=== PATIENT | female | born 1955 | race Caucasian/White ===

== ENCOUNTER → 2018-03-18 16:41 | Outpatient (CLI) | payer MEDICARE | END | disposition home or self-care (01) | LOC: D.LABREF 16:41 | DX: M16.11 Unilateral primary osteoarthritis, right hip (principal); Z11.8 Encounter for screening for other infectious and parasitic diseases ==

== ENCOUNTER 2018-04-04 16:02 | Inpatient (IN) | payer MEDICARE ==
[~2018-04-04] VITALS: Ht 160 cm; Wt 59.1 kg
[2018-04-16] MEDS ORDERED: ASPIRIN EC81 M1 PO (10:53)
[2018-04-16] MEDS ORDERED: SEROQUEL25 MG PO (10:53)
[2018-04-16] MEDS ORDERED: CALCIUM 600 +1 EAC3 PO (10:54)
[2018-04-16] MEDS ORDERED: FISH OIL 1,0001 CA1 PO (10:54)
[2018-04-16] MEDS ORDERED: MOBIC7.5 MG PO (10:54)
[2018-04-16] MEDS ORDERED: PROZAC20 MG PO (10:55)
[2018-04-16] MEDS ORDERED: METAMUCIL PO (10:56)
[2018-04-16] MEDS ORDERED: [UNRECOGNIZED DRUG - OTHER] PO (10:56)
[2018-04-16] MEDS ORDERED: LIPITOR40 MG PO (10:57)
[2018-04-16] MEDS ORDERED: OMEPRAZOLE20 M1 PO (10:57)
[2018-04-16] MEDS ORDERED: HYDROCHLOROTHIA25 MG PO (10:57)
[2018-04-16] MEDS ORDERED: ADVAIR HFA [SP]12 GM INH (10:58)
[2018-04-16] MEDS ORDERED: XOPENEX HFA15 GM INH (10:59)
[2018-04-16 11:32] LABS: BASOPHILS 0.8 % (0-2); EOSINOPHILS 5.5 % (0-7); HEMATOCRIT 39.8 % (36.0-48.0); HEMOGLOBIN 13.2 g/dL (12-16); IMMATURE GRANULOCYTES 0.2 % (0-5); LYMPHOCYTES 25.1 % (15-50); MCH 28.6 pg (26.0-34.0); MCHC 33.2 g/dL (31.0-37.0); MCV 86.3 fL (80.0-100.0); MEAN PLATELET VOLUME 10.6 fL (7.4-10.4); MONOCYTES 7.7 % (2-11); NEUTROPHILS 60.7 % (40-80); PLATELET COUNT 270 10x3/uL (130-400); RBC 4.61 10x6/uL (4.00-5.40); WBC 5.1 10x3/uL (4.8-10.8)
[2018-04-16 11:37] LABS: APPEARANCE CLEAR (CLEAR); BILIRUBIN NEGATIVE (NEGATIVE); COLOR YELLOW (YELLOW); GLUCOSE NEGATIVE (NEGATIVE); KETONE NEGATIVE (NEGATIVE); NITRITE NEGATIVE (NEGATIVE); PROTEIN NEGATIVE (NEGATIVE); SPECIFIC GRAVITY 1.015 (1.005-1.020); UROBILINOGEN NORMAL (NORMAL)
[2018-04-16 11:42] LABS: APTT 28.6 SECONDS (22.8-39.4); INR 0.96 (0.85-1.17); PROTIME 12.3 SECONDS (11.6-15.0)
[2018-04-16 11:44] LABS: CALC OSMOLALITY 284 mosm/kg (275-300); CARBON DIOXIDE 30.8 mmol/L (21.0-32.0); CHLORIDE - SERUM 101 mmol/L (98-107); CREATININE - SERUM 0.8 mg/dL (0.6-1.3); GLUCOSE 99 mg/dL (74-106); POTASSIUM - SERUM 3.7 mmol/L (3.5-5.1); SODIUM 142 mmol/L (136-145); UREA NITROGEN 19 mg/dL (7-18); eGFR NON AFRICAN AMERICAN 77 mL/min (90-120)
[2018-04-21 07:15] VITALS: BP 120/69; BMI 22.7
--- NOTE | 2018-04-21 08:38 | NUR ---
PLASMA BLADE SET TO 6/8 BOVIE PAD LEFT THIGH [id number] EXP 11/26/2019 RIGHT HIP PREPPED FROM HIP TO TOES CIRCUMFERENTIALLY. CLEANED WITH HIBICLENS PRIOR TO CHLORAPREP.
[2018-04-21 10:38] VITALS: BP 124/72
[2018-04-21 11:39] VITALS: BP 106/61; BMI 23.0
--- NOTE | 2018-04-21 12:36 | NUR ---
PT CONCERNED WITH DVTS DUE TO PT HAS HAD 3 IN PAST, APPLIED SCD'S TO BOTH LEGS, ADMINISTERED PRN PAIN MEDICATION PT STATED STARTED TO FEEL MORE THAN SORE, CONTINUE WITH PLAN OF CARE
--- NOTE | 2018-04-21 15:25 | OP ---
PATIENT NAME: ROCHELLE BHAKTA MEDICAL RECORD: [id number] :57 LOCATION:D.MS [id number] ADMISSION DATE:04/21/18 SURGEON: RADHA SALINAS MD DATE OF OPERATION: 04/21/2018 PREOPERATIVE DIAGNOSIS: Severe arthritis of the right hip. POSTOPERATIVE DIAGNOSIS: Severe arthritis of the right hip. PROCEDURE: Right total hip arthroplasty. SURGEON: Radha Salinas MD CHEMIST INTERN: SANJEEV Chacon ANESTHESIA: General. INTRAOPERATIVE COMPLICATIONS: None. SUMMARY OF PATHOLOGIC FINDINGS: The patient had severe osteoarthritis of the right hip. IMPLANTS USED: Marlon Trident 3 polyethylene insert 36 mm alpha code E, [place] Trident 2, Tritanium cluster hole acetabular shell size 54 alpha code E, Biolox ceramic V40 femoral head with a standard length and an Accolade II 132 neck angle size 4. ESTIMATED BLOOD LOSS: 100 cc. OPERATIVE SUMMARY IN DETAIL: After obtaining the appropriate preoperative orthopedic surgery consent as well as anesthetic consultation, evaluation, and clearance, the patient was brought to the operating room and placed on the operating table in supine position. After general laryngeal mask was administered, the patient was placed in left lateral decubitus position. All pressure points well padded to include down leg peroneal pad as well as axillary roll. The patient was held firmly to the operating table using the vacuum pack suction system. Right lower extremity and hip were then prepped and draped in routine sterile fashion. Curvilinear incision made over the greater trochanter, taken down over the IT band, which was split in line with fibers of the IT band to reveal gluteus medius and minimus attachments. These were reflected anteriorly. The capsule was split in a T-type fashion and saved for later reapproximation. The hip was dislocated. Femoral neck cut was made using the femoral neck cutting guide. Acetabulum was then exposed. Circumferential labrectomy and osteophyte removal was then followed by reaming to a size 54. A line to line reaming was used in this patient with soft bone. Size 54 Tritanium cup was then put into place with excellent fit and fill. Polyethylene was put into place and checked with the Monie. Having completed this, attention was turned to the proximal femur. Serial and sequential reaming and broaching were done for a size 4 Accolade II. This was tamped into place. Trial was undertaken. It was felt that standard was the best for leg length reapproximation, size 2 was then tamped by a size standard, Biolox head was tamped into place on the Vidal taper. This was then reduced, taken through range of motion and found to be stable in all planes. Intraoperative radiographs were taken at this point showed good congregation of the patient's length and good fit and fill of all the components. At this point, copious OPERATIVE REPORT [id number] ROCHELLE BHAKTA irrigation was followed by reapproximation of the hip capsule as well as the gluteus medius and minimus back to the greater trochanter with #5 Ethibond. The hip was then filled with 1 gram of vancomycin, 1 gram of tobramycin. IT band was then closed with #2 Ethibond followed by #1 Vicryl, 2-0 Vicryl, and skin tania. Please note, the Manpreet Walker did the IT band and superficial closure. Final closure was achieved with skin tania. Sterile dressings were applied. The patient was awakened, taken to recovery room in stable condition. All final needle and sponge counts were correct. TRANSINT:[id number] Voice Confirmation ID: [id number] DOCUMENT ID: [id number] BRAD LEE, RADHA ALMAZAN at 1525 CC: [id number] DICTATION DATE: 04/21/18910 INTERVENTIONAL TECH: 04/21/1844 ADM IN [facility] [address] [place] [address]
--- NOTE | 2018-04-21 15:34 | NUR ---
ASSISTED PT ONTO BEDPAN, PT INQUIRED ON HOME MEDICAL EQUIPMENT, SPOKE TO CASE MANAGEMENT AND WAS ADVISED WILL SEE PT IN AM AND FOR HER NOT TO WORRY THAT SHE WILL HAVE SUPPLIES BEFORE DC. CONTINUE WITH PLAN OF CARE
--- NOTE | 2018-04-21 17:05 | NUR ---
PT LYING IN BED, GAVE NEW ICE PACK, STATED NO PAIN AT THIS TIME, REMINDED PT TO LET US KNOW OF PAIN BEFORE GETS TOO BAD, FAMILY AT BEDSIDE, CONTINUE WITH PLAN OF CARE
[2018-04-21 17:09] VITALS: BP 104/47
[2018-04-21 21:24] VITALS: BP 108/48
--- NOTE | 2018-04-21 21:30 | NUR ---
SUPINE IN BED, A&O X 4. STATES PAIN IS ADEQUATELY CONTROLLED. DRESSING TO RIGHT HIP- CLEAN/DRY/INTACT. SCDs IN USE, WILL CONTINUE TO MONITOR.
--- NOTE | 2018-04-22 04:13 | NUR ---
RESTING IN BED WITH NO S/S OF DISTRESS NO NEEDS NOTED OR STATED CALL LIGHT IN REACH.
[2018-04-22 05:03] VITALS: BP 109/55
[2018-04-22 06:48] LABS: HEMATOCRIT 30.3 % (36.0-48.0); HEMOGLOBIN 9.8 g/dL (12-16); MCH 27.8 pg (26.0-34.0); MCHC 32.3 g/dL (31.0-37.0); MCV 86.1 fL (80.0-100.0); MEAN PLATELET VOLUME 10.6 fL (7.4-10.4); RBC 3.52 10x6/uL (4.00-5.40)
[2018-04-22 08:51] VITALS: BP 108/49
--- NOTE | 2018-04-22 09:30 | NUR ---
PT RESTING IN BED. ALERT AND ORIENTED. NO ACUTE DISTRESS NOTED. REPORTS PAIN 2/10 AT THIS TIME. IV TO LEFT HAND WITH 1/2 NS @ 100ML/HR INFUSING VIA PUMP, SALINE LOC PER MD ORDERS. DRESSING TO RIGHT HIP C/D/I. SCD'S ON BILATERALLY. DENIES FURTHER NEEDS AT THIS TIME. CL WITHIN REACH. ENCOURAGED TO CALL WITH NEEDS. CONTINUE POC
--- NOTE | 2018-04-22 11:18 | NUR ---
PT RESTING IN BED WATCHING TV. REPORTS PAIN 3/10 AT THIS TIME. DENIES NEED FOR PAIN MED AT THIS TIME. ENCOURAGED TO CALL WITH NEEDS. CL WITHIN REACH. CONTINUE TO MONITOR.
--- NOTE | 2018-04-22 12:47 | NUR ---
PT REPORTS PAIN 5/10 AT THIS TIME TO RIGHT HIP. PAIN MED ADMINISTERED PER MD ORDERS. WILL CONTINUE TO MONITOR.
[2018-04-22 13:39] VITALS: BP 138/48
[2018-04-22 15:45] VITALS: BP 117/53
[2018-04-22 17:18] VITALS: Ht 160 cm; Wt 59.1 kg
[2018-04-22 21:02] VITALS: BP 122/59
[2018-04-23 01:33] VITALS: BP 134/60
[2018-04-23 05:35] LABS: HEMATOCRIT 31.2 % (36.0-48.0); HEMOGLOBIN 9.9 g/dL (12-16); MCH 27.6 pg (26.0-34.0); MCHC 31.7 g/dL (31.0-37.0); MCV 86.9 fL (80.0-100.0); MEAN PLATELET VOLUME 10.6 fL (7.4-10.4); RBC 3.59 10x6/uL (4.00-5.40); RDW 13.2 % (11.5-14.5)
[2018-04-23 06:05] VITALS: BP 124/50
--- NOTE | 2018-04-23 07:15 | NUR ---
REC'D IN WALKING ROUNDS AWAKE AND ALERT. RESP EVEN AND UNLABORED WITH NO DISTRESS NOTED. CAN EXPRESS NEEDS AND WANTS. NO C/O NOTED OR VOICED. ASSESSMENT COMPLETED. C/L IN REACH AT BEDSIDE.
[2018-04-23 08:17] VITALS: BP 133/64; BP 97/26
[2018-04-23] MEDS ORDERED: ELIQUIS2.5 MG PO (08:57)
[2018-04-23] MEDS ORDERED: PERCOCET 10-321 EAC1 PO (08:58)
--- NOTE | 2018-04-23 08:58 | MORECARE ---
CASE MANAGEMENT DISCHARGE SUMMARY PATIENT: ROCHELLE BHAKTA UNIT: [id number] ADM DATE: 04/21/18 AGE: 62 : 57 SEX: F ROOM/BED: D.2213 AUTHOR: ROBIN COLEMAN PHYSICIAN: REFERRING PHYSICIAN: RADHA SALINAS MD DATE OF SERVICE: 04/23/18 Discharge Plan Patient Name: ROCHELLE BHAKTA [facility] [facility] 1955 Planned Disposition: Home or Self Care Anticipated Discharge Date: Discharge Date: Expected LOS: Initial Reviewer: [email or web address] Initial Review Date: 04/21/2018 Generated: 04/23/18 9:58 am DCPIA - Discharge Planning Initial Assessment Updated by [email or web address]: Pam Cardona on 04/23/18 8:56 am * Is the patient Alert and Oriented? Yes * How many steps to enter\exit or inside your home? * PCP RAMOS * [facility] * Preadmission Environment Home with Family * ADLs Independent * Equipment Bedside Commode Walker * List name and contact numbers for known caregivers / representatives who currently or will assist patient after discharge: JILLIAN () [phone] * Verbal permission to speak to the caregivers and representatives has been obtained from the patient. N/A * Community resources currently utilized None * Additional services required to return to the preadmission environment? Yes * Can the patient safely return to the preadmission environment? Yes * Has this patient been hospitalized within the prior 30 days at any hospital? No Patient Name: ROCHELLE BHAKTA Page [phone] at 0858 All edits/amendments must be made on the electronic document DICTATION DATE: 04/23/18856 SPEECH COMMUNICATION INSTRUCTOR: SWATHI 04/23/18856 RPT#: [id number] DC DATE: STATUS: ADM IN [facility] [address] [place] [address] END OF REPORT
--- NOTE | 2018-04-23 09:05 | MORECARE ---
CASE MANAGEMENT DISCHARGE SUMMARY PATIENT: ROCHELLE BHAKTA UNIT: [id number] ADM DATE: 04/21/18 AGE: 62 : 57 SEX: F ROOM/BED: D.2213 AUTHOR: VIRGINIADOC PHYSICIAN: REFERRING PHYSICIAN: RADHA SALINAS MD DATE OF SERVICE: 04/23/18 Discharge Plan Patient Name: ROCHELLE BHAKTA Facility: [facility]:[place] : 1955 Planned Disposition: Home or Self Care Anticipated Discharge Date: Discharge Date: Expected LOS: Initial Reviewer: [email or web address] Initial Review Date: 04/21/2018 Generated: 04/23/18 10:05 am Comments DCP- Discharge Planning Updated by [email or web address]: Pam Cardona on 04/23/18 7:[address] Patient Name: ROCHELLE BHAKTA Admission Status: Elective Accout number: [id number] Admission Date: 04-21-2018 : 1955 Admission Diagnosis: Attending: RADHA SALINAS Current LOS: 2 Anticipated DC Date: Planned Disposition: Home or Self Care Primary Insurance: [employer] Discharge Planning Comments: CM met with patient to complete initial dc planning assessment. CM educated patient on the CM role and verbal consent given by patient to complete assessment. Patient lives in [place] with her . Where she is independent with her care and feels this is a safe discharge. CM discussed availability of home health, rehab services, and medical equipment. Patient plans to do OP PT in [place], I will make first appointment and she will make the rest. Patient has walker and a BSC. There are 3 steps to get to her home. CM will continue to follow and will assist as needed with dc plans/needs. Nurses Educator: Pam Cardona DCPIA - Discharge Planning Initial Assessment Updated by [email or web address]: Pam Cardona on 04/23/18 8:56 am * Is the patient Alert and Oriented? Yes * How many steps to enter\exit or inside your home? * PCP RAMOS * [facility] * Preadmission Environment Home with Family * ADLs Independent * Equipment Bedside Commode Walker * List name and contact numbers for known caregivers / representatives who currently or will assist patient after discharge: JILLIAN () [phone] * Verbal permission to speak to the caregivers and representatives has been obtained from the patient. N/A * Community resources currently utilized None * Additional services required to return to the preadmission environment? Yes * Can the patient safely return to the preadmission environment? Yes * Has this patient been hospitalized within the prior 30 days at any hospital? No Last DP export: 04/23/18 7:58 a Patient Name: ROCHELLE BHAKTA Page [phone] at 0905 All edits/amendments must be made on the electronic document DICTATION DATE: 04/23/18903 GAS WELL PUMPER: SWATHI 04/23/18903 RPT#: [id number] DC DATE: STATUS: ADM IN [facility] [address] [place] [address] END OF REPORT
--- NOTE | 2018-04-23 09:34 | MORECARE ---
CASE MANAGEMENT DISCHARGE SUMMARY PATIENT: ROCHELLE BHAKTA UNIT: [id number] ADM DATE: 04/21/18 AGE: 62 : 57 SEX: F ROOM/BED: D.2213 AUTHOR: VIRGINIA,DOC PHYSICIAN: REFERRING PHYSICIAN: RADHA SALINAS MD DATE OF SERVICE: 04/23/18 Discharge Plan Patient Name: ROCHELLE BHAKTA Facility: [facility]:[place] : 1955 Planned Disposition: Home or Self Care Anticipated Discharge Date: Discharge Date: Expected LOS: Initial Reviewer: [email or web address] Initial Review Date: 04/21/2018 Generated: 04/23/18 10:34 am Comments DCP- Discharge Planning Updated by [email or web address]: Pam Cardona on 04/23/18 8:[address] PATIENT SET UP WITH OP PT AT [facility] FOR Saturday04/24/18 AT 10:45 AM. I SPOKE WITH GEORGE AND FAXED ORDER. A COPY OF OP PT GIVEN TO PATIENT WITH HER DC PACKET. CM TO FOLLOW AND ASSIST WITH DC PLANNING NEEDED DCP- Discharge Planning Updated by [email or web address]: Pam Cardona on 04/23/18 7:[address] Patient Name: ROCHELLE BHAKTA Admission Status: Elective Accout number: [id number] Admission Date: 04-21-2018 : 1955 Admission Diagnosis: Attending: RADHA SALINAS Current LOS: 2 Anticipated DC Date: Planned Disposition: Home or Self Care Primary Insurance: [employer] Discharge Planning Comments: CM met with patient to complete initial dc planning assessment. CM educated patient on the CM role and verbal consent given by patient to complete assessment. Patient lives in [place] with her . Where she is independent with her care and feels this is a safe discharge. CM discussed availability of home health, rehab services, and medical equipment. Patient plans to do OP PT in [place], I will make first appointment and she will make the rest. Patient has walker and a BSC. There are 3 steps to get to her home. CM will continue to follow and will assist as needed with dc plans/needs. Barrel Waterer: Pam Cardona DCPIA - Discharge Planning Initial Assessment Updated by [email or web address]: Pam Cardona on 04/23/18 8:56 am * Is the patient Alert and Oriented? Yes * How many steps to enter\exit or inside your home? * PCP RAMOS * [facility] * Preadmission Environment Home with Family * ADLs Independent * Equipment Bedside Commode Walker * List name and contact numbers for known caregivers / representatives who currently or will assist patient after discharge: JILLIAN () [phone] * Verbal permission to speak to the caregivers and representatives has been obtained from the patient. N/A * Community resources currently utilized None * Additional services required to return to the preadmission environment? Yes * Can the patient safely return to the preadmission environment? Yes * Has this patient been hospitalized within the prior 30 days at any hospital? No Last DP export: 04/23/18 8:05 a Patient Name: ROCHELLE BHAKTA Page [phone] at 0934 All edits/amendments must be made on the electronic document DICTATION DATE: 04/23/18933 OUTDOOR FITNESS TRAINER: SWATHI 04/23/18933 RPT#: [id number] DC DATE: STATUS: ADM IN [facility] [address] [place] [address] END OF REPORT
[2018-04-23 12:39] VITALS: BP 139/59
--- NOTE | 2018-04-23 13:01 | NUR ---
WAS TO BE DC HOME ON TODAY BUT UPON DEPARTURE PT HAD A VAGAL RESPONSE AND DISCHARGE WAS DISCONTINUE. C/L IN REACH AT BEDSIDE.
[2018-04-23 14:42] LABS: BASOPHILS 0.2 % (0-2); EOSINOPHILS 2.5 % (0-7); HEMATOCRIT 31.8 % (36.0-48.0); HEMOGLOBIN 10.5 g/dL (12-16); IMMATURE GRANULOCYTES 0.1 % (0-5); MCH 28.4 pg (26.0-34.0); MCV 85.9 fL (80.0-100.0); MEAN PLATELET VOLUME 10.2 fL (7.4-10.4); MONOCYTES 5.2 % (2-11); PLATELET COUNT 189 10x3/uL (130-400); RDW 13.2 % (11.5-14.5)
[2018-04-23 14:49] LABS: WBC 8.1 10x3/uL (4.8-10.8)
[2018-04-23 14:51] LABS: CALC OSMOLALITY 278 mosm/kg (275-300); CALCIUM 8.7 mg/dL (8.5-10.1); CARBON DIOXIDE 30.5 mmol/L (21.0-32.0); CHLORIDE - SERUM 100 mmol/L (98-107); CREATININE - SERUM 0.8 mg/dL (0.6-1.3); GLUCOSE 132 mg/dL (74-106); POTASSIUM - SERUM 3.8 mmol/L (3.5-5.1); SODIUM 138 mmol/L (136-145); UREA NITROGEN 16 mg/dL (7-18); eGFR NON AFRICAN AMERICAN 77 mL/min (90-120)
[2018-04-23 15:41] VITALS: BP 125/62
[2018-04-23 17:28] LABS: CKMB 2.9 U/L (0.0-3.6); CREATINE KINASE 327 UL (21-215); TROPONIN-I < 0.017 ng/mL (0.000-0.060)
[2018-04-23 21:36] VITALS: BP 136/61
--- NOTE | 2018-04-23 22:30 | NUR ---
CARE OF PT TAKEN OVER FROM ALEX ZAMBRANO, PT RESTING QUITELY IN BED NO APPARENT DISTRESS, CALL LIGHT IN REACH INSTRUCTED TO CALL FOR ASSISTANCE BEFORE GETTING UP
[2018-04-23 22:40] LABS: CKMB 1.2 U/L (0.0-3.6); CREATINE KINASE 299 UL (21-215); TROPONIN-I < 0.017 ng/mL (0.000-0.060)
[2018-04-24 00:36] VITALS: BP 124/64
[2018-04-24 05:51] LABS: BASOPHILS 0.5 % (0-2); HEMATOCRIT 32.4 % (36.0-48.0); HEMOGLOBIN 10.6 g/dL (12-16); IMMATURE GRANULOCYTES 0.2 % (0-5); LYMPHOCYTES 22.1 % (15-50); MCHC 32.7 g/dL (31.0-37.0); MCV 85.5 fL (80.0-100.0); MEAN PLATELET VOLUME 10.6 fL (7.4-10.4); MONOCYTES 7.1 % (2-11); NEUTROPHILS 64.1 % (40-80); RBC 3.79 10x6/uL (4.00-5.40); RDW 13.2 % (11.5-14.5)
[2018-04-24 06:12] LABS: PLATELET COUNT 230 10x3/uL (130-400); WBC 5.5 10x3/uL (4.8-10.8)
[2018-04-24 06:13] VITALS: BP 119/72
[2018-04-24 06:24] LABS: ALBUMIN 2.7 g/dL (3.4-5.0); ALKALINE PHOSPHATASE 73 U/L (46-116); ALT (SGPT) 21 U/L (10-68); BILIRUBIN - TOTAL 0.76 mg/dL (0.2-1.3); CALC OSMOLALITY 281 mosm/kg (275-300); CALCIUM 8.8 mg/dL (8.5-10.1); CARBON DIOXIDE 31.5 mmol/L (21.0-32.0); CHLORIDE - SERUM 101 mmol/L (98-107); CKMB 0.6 U/L (0.0-3.6); CREATINE KINASE 230 UL (21-215); CREATININE - SERUM 0.6 mg/dL (0.6-1.3); GLUCOSE 115 mg/dL (74-106); POTASSIUM - SERUM 3.8 mmol/L (3.5-5.1); PROTEIN - SERUM 6.5 g/dL (6.4-8.2); SODIUM 141 mmol/L (136-145); UREA NITROGEN 12 mg/dL (7-18); eGFR NON AFRICAN AMERICAN > 90 mL/min (90-120)
[2018-04-24 06:44] LABS: TROPONIN-I < 0.017 ng/mL (0.000-0.060)
--- NOTE | 2018-04-24 07:49 | NUR ---
REC'D IN WALKING ROUND AWAKE AND ALERT. RESP EVEN AND UNLABORED WITH NO DISTRESS NOTED. CAN EXPRESS NEEDS AND WANTS. NO C/O NOTED OR VOICED. ASSESSMENT COMPLETED. C/L IN REACH AT BEDSIDE.
--- NOTE | 2018-04-24 08:00 | NUR ---
PATIENT IN BED WITH EYES OPEN. NO COMPLAINTS OR SIGNS OF DISTRESS. DENIES ANY NEEDS AT THIS TIME. CALL LIGHT WITHIN REACH.
[2018-04-24 09:14] VITALS: BP 122/68
--- NOTE | 2018-04-24 09:54 | MORECARE ---
CASE MANAGEMENT DISCHARGE SUMMARY PATIENT: ROCHELLE BHAKTA UNIT: [id number] ADM DATE: 04/21/18 AGE: 62 : 57 SEX: F ROOM/BED: D.2213 AUTHOR: ROBIN COLEMAN PHYSICIAN: REFERRING PHYSICIAN: RADHA SALINAS MD DATE OF SERVICE: 04/24/18 Discharge Plan Patient Name: ROCHELLE BHAKTA Facility: [facility]:[place] : 1955 Planned Disposition: Home or Self Care Anticipated Discharge Date: Discharge Date: Expected LOS: Initial Reviewer: [email or web address] Initial Review Date: 04/21/2018 Generated: 04/24/18 10:54 am Comments DCP- Discharge Planning Updated by [email or web address]: Pam Cardona on 04/24/18 8:[address] I had to move patient's op pt appointment to Saturdayapr 25 at 12:45 pm copy of new appointment given to patient DCP- Discharge Planning Updated by [email or web address]: Pam Cardona on 04/23/18 8:[address] PATIENT SET UP WITH OP PT AT [facility] FOR Saturday04/24/18 AT 10:45 AM. I SPOKE WITH GEORGE AND FAXED ORDER. A COPY OF OP PT GIVEN TO PATIENT WITH HER DC PACKET. CM TO FOLLOW AND ASSIST WITH DC PLANNING NEEDED DCP- Discharge Planning Updated by [email or web address]: Pam Cardona on 04/23/18 7:[address] Patient Name: ROCHELLE BHAKTA Admission Status: Elective Accout number: [id number] Admission Date: 04-21-2018 : 1955 Admission Diagnosis: Attending: RADHA SALINAS Current LOS: 2 Anticipated DC Date: Planned Disposition: Home or Self Care Primary Insurance: [employer] Plan Discharge Planning Comments: CM met with patient to complete initial dc planning assessment. CM educated patient on the CM role and verbal consent given by patient to complete assessment. Patient lives in [place] with her . Where she is independent with her care and feels this is a safe discharge. CM discussed availability of home health, rehab services, and medical equipment. Patient plans to do OP PT in [place], I will make first appointment and she will make the rest. Patient has walker and a BSC. There are 3 steps to get to her home. CM will continue to follow and will assist as needed with dc plans/needs. Shade Matcher: Pam Cardona DCPIA - Discharge Planning Initial Assessment Updated by [email or web address]: Pam Cardona on 04/23/18 8:56 am * Is the patient Alert and Oriented? Yes * How many steps to enter\exit or inside your home? * PCP RAMOS * [facility] * Preadmission Environment Home with Family * ADLs Independent * Equipment Bedside Commode Walker * List name and contact numbers for known caregivers / representatives who currently or will assist patient after discharge: JILLIAN () [phone] * Verbal permission to speak to the caregivers and representatives has been obtained from the patient. N/A * Community resources currently utilized None * Additional services required to return to the preadmission environment? Yes * Can the patient safely return to the preadmission environment? Yes * Has this patient been hospitalized within the prior 30 days at any hospital? No Last DP export: 04/23/18 8:34 a Patient Name: ROCHELLE BHAKTA Page [phone] at 0954 All edits/amendments must be made on the electronic document DICTATION DATE: 04/24/18952 SKEIN INSPECTOR: SWATHI 04/24/18952 RPT#: [id number] DC DATE: STATUS: ADM IN [facility] [address] [place] [address] END OF REPORT
--- NOTE | 2018-04-24 10:20 | NUR ---
DC HOME AT THIS TIME VOICE UNDERSTANDING OF DC SUMMARY. NO IV ACCESS. FAMILY AT BEDSIDE. STABLE CONDITION UPON DEPARTURE.
--- NOTE | 2018-04-29 17:17 | MORECARE ---
CASE MANAGEMENT DISCHARGE SUMMARY PATIENT: ROCHELLE BHAKTA UNIT: [id number] ADM DATE: 04/21/18 AGE: 62 : 57 SEX: F ROOM/BED: D.2213 AUTHOR: VIRGINIA,DOC PHYSICIAN: REFERRING PHYSICIAN: RADHA SALINAS MD DATE OF SERVICE: 04/29/18 Discharge Plan Patient Name: ROCHELLE BHAKTA Facility: [facility]:[place] : 1955 Planned Disposition: Home or Self Care Anticipated Discharge Date: Discharge Date: 04/24/2018 Expected LOS: 0 Initial Reviewer: [email or web address] Initial Review Date: 04/21/2018 Generated: 04/29/18 6:17 pm Comments DCP- Discharge Planning Updated by [email or web address]: Pam Cardona on 04/24/18 8:[address] I had to move patient's op pt appointment to Saturdayapr 25 at 12:45 pm copy of new appointment given to patient DCP- Discharge Planning Updated by [email or web address]: Pam Cardona on 04/23/18 8:[address] PATIENT SET UP WITH OP PT AT [facility] FOR Saturday04/24/18 AT 10:45 AM. I SPOKE WITH GEORGE AND FAXED ORDER. A COPY OF OP PT GIVEN TO PATIENT WITH HER DC PACKET. CM TO FOLLOW AND ASSIST WITH DC PLANNING NEEDED DCP- Discharge Planning Updated by [email or web address]: Pam Cardona on 04/23/18 7:[address] Patient Name: ROCHELLE BHAKTA Admission Status: Elective Accout number: [id number] Admission Date: 04-21-2018 : 1955 Admission Diagnosis: Attending: RADHA SALINAS Current LOS: 2 Anticipated DC Date: Planned Disposition: Home or Self Care Primary Insurance: [employer] Discharge Planning Comments: CM met with patient to complete initial dc planning assessment. CM educated patient on the CM role and verbal consent given by patient to complete assessment. Patient lives in [place] with her . Where she is independent with her care and feels this is a safe discharge. CM discussed availability of home health, rehab services, and medical equipment. Patient plans to do OP PT in [place], I will make first appointment and she will make the rest. Patient has walker and a BSC. There are 3 steps to get to her home. CM will continue to follow and will assist as needed with dc plans/needs. Property Inspector: Pam Cardona DCPIA - Discharge Planning Initial Assessment Updated by [email or web address]: Pam Cardona on 04/23/18 8:56 am * Is the patient Alert and Oriented? Yes * How many steps to enter\exit or inside your home? * PCP RAMOS * [facility] * Preadmission Environment Home with Family * ADLs Independent * Equipment Bedside Commode Walker * List name and contact numbers for known caregivers / representatives who currently or will assist patient after discharge: JILLIAN () [phone] * Verbal permission to speak to the caregivers and representatives has been obtained from the patient. N/A * Community resources currently utilized None * Additional services required to return to the preadmission environment? Yes * Can the patient safely return to the preadmission environment? Yes * Has this patient been hospitalized within the prior 30 days at any hospital? No Last DP export: 04/24/18 8:54 a Patient Name: ROCHELLE BHAKTA Page [phone] at 1718 All edits/amendments must be made on the electronic document DICTATION DATE: 04/29/181716 DIRECTOR COUNSELING BUREAU: SWATHI 04/29/181716 RPT#: [id number] DC DATE:04/24/18 STATUS: DIS IN [facility] [address] [place] [address] END OF REPORT
== END 2018-04-24 10:21 | disposition home or self-care (01) | DRG 470 ==
LOC: D.SDCHOLD 04-21 05:00 → D.MS 04-21 05:00 → D.SDCHOLD 04-21 07:30 → D.MS 04-21 10:18
PROVIDERS: Family Medicine; ADMIT Orthopaedic Surgery
PROC: 0SR90JZ Replacement of Right Hip Joint with Synthetic Substitute, Open Approach (ICD-10-PCS; principal; 2018-04-21 07:30)
DX: M16.11 Unilateral primary osteoarthritis, right hip (principal); D62 Acute posthemorrhagic anemia; I10 Essential (primary) hypertension; J45.909 Unspecified asthma, uncomplicated